=== PATIENT | female | born 1990 | race Caucasian/White ===

== ENCOUNTER 2024-10-26 01:03 | Emergency (ER) | payer SELFPAY ==
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
[2024-10-26 01:13] VITALS: BP 130/100; BP 135/83; PULSE 110; PULSE 134; RESP 24; TEMP 36.9; O2SAT 100; O2SAT 98; BMI 26.4
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
[2024-10-26] MEDS: Diphth,Pertus(ACell),Tet Adult 0.5 ML SYRINGE IM (02:02)
[2024-10-26 03:47] VITALS: BP 110/70; PULSE 93; RESP 18; TEMP 36.7; O2SAT 98
[2024-10-26 04:02] VITALS: BP 110/70; PULSE 93; RESP 18; TEMP 36.7; O2SAT 98
== END 2024-10-26 04:03 | disposition home or self-care (01) ==
PROVIDERS: Emergency Provider Emergency Medicine
DX: S61.052A Open bite of left thumb without damage to nail, initial encounter (principal); S61.256A Open bite of right little finger without damage to nail, initial encounter; Y04.1XXA Assault by human bite, initial encounter; S01.511A Laceration without foreign body of lip, initial encounter; S00.83XA Contusion of other part of head, initial encounter; S50.812A Abrasion of left forearm, initial encounter; S50.811A Abrasion of right forearm, initial encounter; Y04.2XXA Assault by strike against or bumped into by another person, initial encounter; F41.9 Anxiety disorder, unspecified; Y93.89 Activity, other specified; Y92.89 Other specified places as the place of occurrence of the external cause; Y99.8 Other external cause status; Z23 Encounter for immunization
CPT/HCPCS: 70450; 70486; 72125; 90471; 90715; 99284

== ENCOUNTER → 2024-10-26 01:44 | Outpatient (BNV) | payer SELFPAY | PROVIDERS: Emergency Provider Emergency Medicine; Visit Provider Radiology Diagnostic Radiology | DX: S61.052A Open bite of left thumb without damage to nail, initial encounter (principal); S61.256A Open bite of right little finger without damage to nail, initial encounter; Y04.1XXA Assault by human bite, initial encounter | CPT/HCPCS: 70450; 70486; 72125 ==